=== PATIENT | male | born 1995 | race Caucasian/White ===

== ENCOUNTER 2017-10-02 12:37 | Emergency (ER) | payer OTHER ==
[2017-10-02 12:58] VITALS: BP 144/82; RESP 18
[2017-10-02] MEDS ORDERED: SODIUM CHLORIDE 0.9% 1,000 ML IV ONE (13:01)
[2017-10-02 13:03] LABS: ABG Base Excess 1.7 mmol/L; ABG HCO3 23 mmol/L (21-25); ABG PCO2 21 mmHg (35-45); ABG PO2 277 mmHg (83-108); ABG TCO2 23 mmol/L (19-24)
[2017-10-02 13:09] LABS: ABG PH 7.65 (7.35-7.45)
[2017-10-02 13:24] LABS: ALT 32 U/L (21-72); AST 28 U/L (17-59); Albumin 5.1 g/dL (3.5-5.0); Alkaline Phosphatase 70 U/L (38-126); Anion Gap 12 mmol/L; Blood Urea Nitrogen 20 mg/dL (9-20); Calcium 10.5 mg/dL (8.4-10.2); Carbon Dioxide 25 mmol/L (22-30); Chloride 106 mmol/L (98-107); Glucose 78 mg/dL (74-99); Potassium 3.8 mmol/L (3.5-5.1); Sodium 143 mmol/L (137-145); Total Bilirubin 1.1 mg/dL (0.2-1.3); Total Protein 7.6 g/dL (6.3-8.2)
[2017-10-02 13:25] LABS: INR 1.2 (<1.2); Partial Thromboplastin Time 24.9 sec (22.0-30.0); Prothrombin Time 11.4 sec (9.0-12.0)
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
[2017-10-02 13:32] LABS: Basophils % (A) 1 %; Eosinophils # (A) 0.2 k/uL (0-0.7); Eosinophils % (A) 2 %; HCT 47.6 % (39.0-53.0); HGB 15.7 gm/dL (13.0-17.5); Lymphocytes # (A) 2.4 k/uL (1.0-4.8); Lymphocytes % (A) 25 %; MCH 28.5 pg (25.0-35.0); MCHC 33.1 g/dL (31.0-37.0); MCV 86.1 fL (80.0-100.0); Monocytes # (A) 0.5 k/uL (0-1.0); Monocytes % (A) 6 %; Neutrophils # (A) 6.3 k/uL (1.3-7.7); Neutrophils % (A) 66 %; Platelet Count 225 k/uL (150-450); RBC 5.53 m/uL (4.30-5.90); RDW 12.6 % (11.5-15.5); WBC 9.5 k/uL (3.8-10.6)
[2017-10-02 13:59] VITALS: PULSE 62; TEMP 98.2
== END 2017-10-02 13:52 | disposition other institution (70) ==
LOC: EC 12:37
DX: T70.3XXA Caisson disease [decompression sickness], initial encounter (principal); W16.42XA Fall into unspecified water causing other injury, initial encounter; Y93.12 Activity, springboard and platform diving
CPT/HCPCS: 36415; 36600; 80053; 82805; 85025; 85610; 85730; 93005; 96360; 99285

== ENCOUNTER 2023-01-29 09:31 | Emergency (ER) | payer OTHER, BC ==
[2023-01-29 09:46] VITALS: RESP 18; TEMP 98
[2023-01-29] MEDS ORDERED: IBUPROFEN 600 MG TAB PO STA (09:51)
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
[2023-01-29 10:32] VITALS: BP 164/88; PULSE 60
== END 2023-01-29 10:38 | disposition home or self-care (01) ==
LOC: EC 09:31
DX: S46.912A Strain of unspecified muscle, fascia and tendon at shoulder and upper arm level, left arm, initial encounter (principal); V43.52XA Car driver injured in collision with other type car in traffic accident, initial encounter
CPT/HCPCS: 99284

== ENCOUNTER → 2023-02-04 | Outpatient (CLI) | payer OTHER ==
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
== END | disposition home or self-care (01) ==
LOC: RADMRIMAIN 12:38
PROVIDERS: ATTEND Emergency Medicine
DX: S43.402A Unspecified sprain of left shoulder joint, initial encounter (principal)

== ENCOUNTER → 2023-02-10 | Outpatient (CLI) | payer OTHER ==
--- NOTE | 2023-02-10 12:38 | XR ---
EXAMINATION TYPE: XR cervical spine comp DATE OF EXAM: 02/10/2023 CLINICAL HISTORY: pain COMPARISON: NONE TECHNIQUE: Frontal, lateral, oblique, swimmers, and open mouth view of the cervical spine are obtaine d. FINDINGS: The cervical spine is visualized in its entirety from C1 thru the top of T1 level. It is s atisfactory in alignment without evidence of acute fracture or dislocation. The pre-vertebral soft t issue appears within normal limits. Disc spaces are well preserved. The C1-C2 articulation is unremar kable on the open mouth view. The oblique images are within normal limits. IMPRESSION: No acute fracture or dislocation is seen in the cervical spine.ICD 10 NO FRACTURE, INITI AL EVALUATION
== END | disposition home or self-care (01) ==
LOC: RADXRMAIN 11:54
PROVIDERS: ATTEND Emergency Medicine
DX: M54.2 Cervicalgia (principal); S43.402D Unspecified sprain of left shoulder joint, subsequent encounter; X58.XXXD Exposure to other specified factors, subsequent encounter
CPT/HCPCS: 72050